=== PATIENT | male | born 1955 | race Caucasian/White ===

== ENCOUNTER 2020-10-12 08:54 | Emergency (ER) | payer OTHER ==
[~2020-10-12] VITALS: Ht 154.9 cm; Wt 80.3 kg
[2020-10-12] MEDS ORDERED: PRILOSEC OTC20 MG PO (09:06)
--- NOTE | 2020-10-13 06:54 | EKG ---
[facility] [address] [place], [place] [address] Signed Sinus tachycardia with 1st degree AV block Left axis deviation Septal infarct , age undetermined Abnormal ECG No previous ECGs available Confirmed by MARCIANO TREVIÑO MD ([id number]) on 10/13/2020 6:54:15 AM Electronically Signed By: MARCIANO TREVIÑO MD 10/13/20 0654 PATIENT NAME: LEVI FAJARDO Electrocardiogram DATE OF : 53 PHYSICIAN: MARCIANO TREVIÑO MD REPORT #: [id number] REPORT IS CONFIDENTIAL AND NOT TO BE RELEASED WITHOUT AUTHORIZATION
== END 2020-10-12 12:03 | disposition home or self-care (01) ==
LOC: ED 08:54
DX: R00.0 Tachycardia, unspecified (principal); Z87.891 Personal history of nicotine dependence
CPT/HCPCS: 71045; 80053; 84484; 85025; 93005; 93010; 99285-25; J7030